=== PATIENT | male | born 1975 | race African-American/Black ===

== ENCOUNTER 2023-12-11 00:11 | Emergency (ER) | payer SELFPAY ==
[~2023-12-11] VITALS: Ht 180.3 cm; Wt 83.9 kg
[2023-12-11 00:16] VITALS: PULSE 110; O2SAT 100
[2023-12-11 01:40] LABS: HEMATOCRIT. 37.8 % (42.0-52.0); HEMOGLOBIN. 12.9 g/dL (14.0-18.0); LYMPHOCYTES % 28.7 % (20.0-50.0); MEAN CORPUSCULAR HEMOGLOBIN 30.9 pg (28.0-32.0); MEAN CORPUSCULAR HGB CONC 34.2 g/dL (31.0-37.0); MEAN CORPUSCULAR VOLUME 90.2 fL (80.0-94.0); MEAN PLATELET VOLUME 7.7 fl (7.4-10.4); NEUTROPHILS % 60.3 % (40.0-76.0); PLATELET 413 x1000/uL (130-400); RED BLOOD CELL COUNT 4.19 mill/uL (4.7-6.1); RED CELL DISTRIBUTION WIDTH 13.8 % (11.6-14.6); WHITE BLOOD COUNT 10.8 x1000/uL (4.5-11.0)
[2023-12-11 01:53] LABS: CHLORIDE 102 mEq/L (98-107); POTASSIUM 3.3 mEq/L (3.5-5.1); SODIUM 139 mEq/L (136-145)
[2023-12-11 01:54] LABS: CALCIUM 9.5 mg/dL (8.7-10.4); CARBON DIOXIDE 32 mEq/L (21-32)
[2023-12-11 01:59] LABS: GLUCOSE 101 mg/dL (70-105); UREA NITROGEN BLOOD 7 mg/dL (9-23)
[2023-12-11 03:22] LABS: CLARITY URINE CLEAR (CLEAR); COLOR URINE YELLOW (YELLOW); GLUCOSE URINE NEGATIVE (NEGATIVE); KETONES URINE TRACE (NEGATIVE); LEUKOCYTE ESTERASE URINE NEGATIVE (NEGATIVE); NITRITE URINE NEGATIVE (NEGATIVE); OCCULT BLOOD URINE 1+ (NEGATIVE); PROTEIN URINE TRACE (NEGATIVE); SPECIFIC GRAVITY URINE 1.025 (1.005-1.030)
[2023-12-11] MEDS ORDERED: DOXY100T28 MT (03:38)
[2023-12-11] MEDS ORDERED: NAPR-681 MT (03:38)
[2023-12-11] MEDS: PENICILLIN G BENZATHINE 2,400,000 UNITS/4ML SYR IM NR (03:45)
[2023-12-11 04:11] LABS: BACTERIA URINE TRACE; SQUAMOUS EPITHELIAL CELL URINE FEW /lpf (RARE/1+)
== END 2023-12-11 04:05 | disposition home or self-care (01) ==
LOC: ER 00:25
DX: L73.9 Follicular disorder, unspecified (principal); A64 Unspecified sexually transmitted disease; E87.6 Hypokalemia; A51.0 Primary genital syphilis
CPT/HCPCS: 99284; 86593; 86592; 80048; 81003; 85025; 36415; 72100; 96372; J0561

== ENCOUNTER 2024-11-10 13:11 | Emergency (ER) | payer MEDICAID, OTHER ==
[~2024-11-10] VITALS: Ht 188 cm; Wt 100.0 kg
[~2024-11-10 13:11] MED LIST: DOXY100T28 MT; NAPR-681 MT
[2024-11-10 15:01] LABS: BASOPHILS % 0.4 % (0.0-2.0); EOSINOPHILS % 0.4 % (0.0-5.0); HEMATOCRIT. 40.1 % (42.0-52.0); HEMOGLOBIN. 13.4 g/dL (14.0-18.0); LYMPHOCYTES % 15.3 % (20.0-50.0); MEAN PLATELET VOLUME 8.1 fl (7.4-10.4); MONOCYTES % 8.1 % (2.0-8.0); NEUTROPHILS % 75.8 % (40.0-76.0); PLATELET 330 x1000/uL (130-400); RED BLOOD CELL COUNT 4.34 mill/uL (4.7-6.1); RED CELL DISTRIBUTION WIDTH 13.6 % (11.6-14.6)
[2024-11-10] MEDS: HALOPERIDOL LACTATE 5MG/ML VIAL IM ONE (15:05)
[2024-11-10] MEDS: LORAZEPAM 2MG/ML UD SYRINGE IM SCH (15:05)
[2024-11-10 15:14] LABS: ETHANOL BLOOD < 10 mg/dL (<10); UREA NITROGEN BLOOD 12 mg/dL (9-23)
[2024-11-10 15:26] LABS: CREATININE 1.4 mg/dL (0.6-1.3)
[2024-11-10] MEDS ORDERED: POTASSIUM CHLORIDE 20MEQ TABLET SR PO ONE (15:45)
[2024-11-10 16:15] VITALS: O2SAT 99
[2024-11-10 16:55] LABS: CLARITY URINE CLEAR (CLEAR); COLOR URINE DARK YELLOW (YELLOW); GLUCOSE URINE NEGATIVE (NEGATIVE); KETONES URINE 1+ (NEGATIVE); LEUKOCYTE ESTERASE URINE NEGATIVE (NEGATIVE); NITRITE URINE NEGATIVE (NEGATIVE); OCCULT BLOOD URINE NEGATIVE (NEGATIVE); PH URINE 5.5 (4.5-8.0); PROTEIN URINE 1+ (NEGATIVE); SPECIFIC GRAVITY URINE 1.033 (1.005-1.030); UROBILINOGEN URINE 1.0 E.U./dL (0.2-1.0)
[2024-11-10 17:01] LABS: *AMPHETAMINES SCREEN URINE PRESUMPTIVE POSITIVE (NEGATIVE); *BARBITURATES SCREEN URINE NEGATIVE (NEGATIVE); *BENZODIAZEPINES SCREEN URINE PRESUMPTIVE POSITIVE (NEGATIVE)
[2024-11-10 17:02] LABS: *COCAINE SCREEN URINE PRESUMPTIVE POSITIVE (NEGATIVE); CANNABINOID URINE SCREEN PRESUMPTIVE POSITIVE (NEGATIVE); ECSTASY MDMA SCREEN URINE CONF.TEST INDICATED (NEGATIVE); METHADONE URINE SCREEN NEGATIVE (NEGATIVE); OPIATES URINE SCREEN NEGATIVE (NEGATIVE); PHENCYCLIDINE URINE SCREEN PRESUMTIVE POSITIVE (NEGATIVE)
[2024-11-10 17:51] LABS: BACTERIA URINE TRACE; RBC URINE 0-2 /hpf (0-2); SQUAMOUS EPITHELIAL CELL URINE RARE /lpf (RARE/1+); WBC URINE 0-2 /hpf (0-2)
[2024-11-11] MEDS: POTASSIUM CHLORIDE 20MEQ TABLET SR PO NR (07:15)
[2024-11-11] MEDS ORDERED: HYDROXYZINE 25MG TABLET PO PRN (12:15)
[2024-11-11 15:48] VITALS: BP 124/79; PULSE 85; RESP 18; TEMP 36.7; O2SAT 99
[2024-11-11] MEDS ORDERED: OLANZAPINE 5MG TABLET PO SCH (21:00)
== END 2024-11-11 15:41 ==
LOC: ER 13:11
DX: F29 Unspecified psychosis not due to a substance or known physiological condition (principal); F19.10 Other psychoactive substance abuse, uncomplicated; Z79.899 Other long term (current) drug therapy; Z20.822 Contact with and (suspected) exposure to COVID-19
CPT/HCPCS: 99285; 87426; 80048; 81003; 80307; 85025; 36415; 96372; G0480; J1630; J2060; 80305; 80320; 80329